=== PATIENT | female | born 1990 | race Caucasian/White ===

== ENCOUNTER 2017-02-14 11:50 | Emergency (ER) | payer BC ==
[2017-02-14 12:38] LABS: ABSOLUTE BASOPHILS # (AUTO) 0.1 10^3/uL (0.0-0.2); ABSOLUTE EOSINOPHILS # (AUTO) 0.1 10^3/uL (0.0-0.6); ABSOLUTE LYMPHOCYTES (AUTO) 2.7 10^3/uL (0.5-4.7); ABSOLUTE MONOCYTES (AUTO) 0.5 10^3/uL (0.1-1.4); ABSOLUTE NEUT (AUTO) 4.9 10^3/uL (1.7-8.2); BASOPHILS % (AUTO) 0.7 % (0-2); EOSINOPHILS % (AUTO) 1.7 % (0-6); HEMATOCRIT 42.2 % (36.0-47.0); HEMOGLOBIN 14.1 g/dL (12.0-15.5); HGB HCT DIFFERENCE 0.1; LYMPHOCYTES % (AUTO) 32.1 % (13-45); MEAN CORPUSCULAR HEMOGLOBIN 29.4 pg (27.0-33.4); MEAN CORPUSCULAR HGB CONC 33.5 g/dL (32.0-36.0); MEAN CORPUSCULAR VOLUME 88 fl (80-97); RED BLOOD COUNT 4.81 10^6/uL (3.72-5.28); RED CELL DISTRIBUTION WIDTH 12.4 % (11.5-14.0); SEGMENTED NEUTROPHILS % (AUTO) 59.5 % (42-78); WHITE BLOOD COUNT 8.3 10^3/uL (4.0-10.5)
[2017-02-14 12:50] LABS: APPEARANCE,URINE CLEAR; BILIRUBIN,URINE NEGATIVE (NEGATIVE); GLUCOSE, URINE NEGATIVE (NEGATIVE); KETONES,URINE NEGATIVE (NEGATIVE); LEUKOCYTE ESTERASE,URINE NEGATIVE (NEGATIVE); NITRITE,URINE NEGATIVE (NEGATIVE); PROTEIN,URINE NEGATIVE (NEGATIVE); URINE SPECIFIC GRAVITY 1.013; UROBILINOGEN,URINE NEGATIVE mg/dL (<2.0)
[2017-02-14 13:06] LABS: ALANINE AMINOTRANSFERASE 29 U/L (9-52); ALBUMIN 4.6 g/dL (3.5-5.0); ALKALINE PHOSPHATASE 46 U/L (38-126); ANION GAP 11 (5-19); ASPARTATE AMINO TRANSFERASE 26 U/L (14-36); BILIRUBIN,DIRECT 0.2 mg/dL (0.0-0.4); BILIRUBIN,TOTAL 0.8 mg/dL (0.2-1.3); BLOOD UREA NITROGEN 14 mg/dL (7-20); CALCIUM 9.7 mg/dL (8.4-10.2); CARBON DIOXIDE 26 mmol/L (22-30); CHLORIDE 105 mmol/L (98-107); GLUCOSE 83 mg/dL (75-110); POTASSIUM 4.6 mmol/L (3.6-5.0); SODIUM 141.6 mmol/L (137-145); TOTAL PROTEIN 7.4 g/dL (6.3-8.2)
--- NOTE | 2017-02-14 13:11 | RADIOLOGY REPORT (SQ) ---
EXAM DESCRIPTION: CT HEAD WITHOUT COMPLETED DATE/TIME: 02/14/2017 12:56 pm REASON FOR STUDY: new onset seizure COMPARISON: 05/06/2010 TECHNIQUE: Axial images acquired through the brain without intravenous contrast. Images reviewed wi th bone, brain and subdural windows. Images stored on PACS. All CT scanners at this facility use dose modulation, iterative reconstruction, and/or weight based d osing when appropriate to reduce radiation dose to as low as reasonably achievable (ALARA). [facility]: Dose Right [facility]: CareDose [facility]: Dose Right [facility]: Teradose 4D [facility]: Smart TwtBks RADIATION DOSE: Up-to-date CT equipment and radiation dose reduction techniques were employed. CTDIv ol: 64.6 mGy. DLP: 1292 mGy-cm. mGy. LIMITATIONS: None. FINDINGS: VENTRICLES: Normal size and contour. CEREBRUM: No masses. No hemorrhage. No midline shift. Normal jose/white matter differentiation. N o evidence for acute infarction. CEREBELLUM: No masses. No hemorrhage. No alteration of density. No evidence for acute infarction. EXTRAAXIAL SPACES: No fluid collections. No masses. ORBITS AND GLOBE: No intra- or extraconal masses. Normal contour of globe without masses. CALVARIUM: No fracture. PARANASAL SINUSES: No fluid or mucosal thickening. SOFT TISSUES: No mass or hematoma. OTHER: No other significant finding. IMPRESSION: NORMAL BRAIN CT WITHOUT CONTRAST. TECHNICAL DOCUMENTATION: JOB ID: [id number] Quality ID # [id number]: Final reports with documentation of one or more dose reduction techniques (e.g., Au tomated exposure control, adjustment of the mA and/or kV according to patient size, use of iterative reconstruction technique) 2010 [employer]- All Rights Reserved
--- NOTE | 2017-02-14 13:11 | RADIOLOGY REPORT (SQ) ---
EXAM DESCRIPTION: FOOT LEFT COMPLETE COMPLETED DATE/TIME: 02/14/2017 1:02 pm REASON FOR STUDY: foot injury COMPARISON: None. NUMBER OF VIEWS: Three views. TECHNIQUE: AP, lateral and oblique radiographic images acquired of the left foot. LIMITATIONS: None. FINDINGS: MINERALIZATION: Normal. BONES: No acute fracture or dislocation. No worrisome bone lesions. JOINTS: No effusions. SOFT TISSUES: No soft tissue swelling. No foreign body. OTHER: No other significant finding. IMPRESSION: NEGATIVE STUDY OF THE LEFT FOOT. NO RADIOGRAPHIC EVIDENCE OF ACUTE INJURY. TECHNICAL DOCUMENTATION: JOB ID: [id number] [employer]- All Rights Reserved
[2017-02-14] MEDS ORDERED: KETOROLAC TROMETHAMINE 10 MG TABLET PO ONE (13:34)
--- NOTE | 2017-02-14 13:34 | ER Document Report ---
ED General - General Chief Complaint: Probable Seizure Stated Complaint: FOOT INJURY Time Seen by Provider: 02/14/17 12:06 Mode of Arrival: Ambulatory Information source: Patient, Parent Notes: 26-year-old female no previous seizure history no previous medical history who only takes vitamins [id number] presents after a seizure like episode lasting approximately 2 minutes per mother. Mother states she was shaking eyes rolled back she laid her to the side. Patient gradually woke up and admits to headache as well as left foot pain. Patient denies any other injuries Mother denies a family history of seizures denies staring off episodes of the child TRAVEL OUTSIDE OF THE [place] IN LAST 30 DAYS: No - HPI Onset: Just prior to arrival Onset/Duration: Sudden Quality of pain: Achy Severity: Mild Pain Level: 1 Associated symptoms: Headache Exacerbated by: Movement Relieved by: Denies Similar symptoms previously: No Recently seen / treated by doctor: No - Related Data Allergies/Adverse Reactions: adhesive [Adhesive] Allergy (Intermediate, Verified 09/20/13 16:27) Generalized rash latex [Latex] Allergy (Intermediate, Verified 09/20/13 16:27) Generalized rash Past Medical History - Social History Smoking Status: Never Smoker Cigarette use (# per day): No Chew tobacco use (# tins/day): No Smoking Education Provided: No Frequency of alcohol use: Rare Drug Abuse: None Family History: Reviewed & Not Pertinent Renal/ Medical History: Denies: Hx Peritoneal Dialysis Musculoskeltal Medical History: Reports Hx Arthritis - JRA Past Surgical History: Reports: Hx Tonsillectomy - Immunizations Hx Diphtheria, Pertussis, Tetanus Vaccination: Yes Review of Systems - Review of Systems Notes: REVIEW OF SYSTEMS: CONSTITUTIONAL : Denies fever, chills, or sweats. Denies recent illness. EENT: Denies eye, ear, throat, or mouth pain or symptoms. Denies nasal or sinus congestion or discharge. Denies throat, tongue, or mouth swelling or difficulty swallowing. CARDIOVASCULAR: Denies chest pain. Denies palpitations or racing or irregular heart beat. Denies ankle edema. RESPIRATORY: Denies cough, cold, or chest congestion. Denies shortness of breath, difficulty breathing, or wheezing. GASTROINTESTINAL: Denies abdominal pain or distention. Denies nausea, vomiting , or diarrhea. Denies blood in vomitus, stools, or per rectum. Denies black, tarry stools. Denies constipation. GENITOURINARY: Denies difficulty urinating, painful urination, burning, frequency, blood in urine, or discharge. FEMALE GENITOURINARY: Denies vaginal bleeding, heavy or abnormal periods, irregular periods. Denies vaginal discharge or odor. MUSCULOSKELETAL: Admits to left footpain SKIN: Denies rash, lesions or sores. HEMATOLOGIC : Denies easy bruising or bleeding. LYMPHATIC: Denies swollen, enlarged glands. NEUROLOGICAL: Admits to seizure activity PSYCHIATRIC: Denies anxiety or stress. Denies depression, suicidal ideation, or homicidal ideation. ALL OTHER SYSTEMS REVIEWED AND NEGATIVE. PHYSICAL EXAMINATION: GENERAL: Well-appearing, well-nourished and in no acute distress. HEAD: Atraumatic, normocephalic. EYES: Pupils equal round extraocular movements intact, conjunctiva are normal. ENT: Nares patent, oropharynx clear without exudates. Moist mucous membranes. NECK: Normal range of motion, supple without lymphadenopathy LUNGS: Breath sounds clear to auscultation bilaterally and equal. No wheezes rales or rhonchi. HEART: Regular rate and rhythm without murmurs Female : deferred Musculoskeletal: Normal range of motion, no pitting or edema. No cyanosis. NEUROLOGICAL: Cranial nerves grossly intact. Normal speech, normal gait. Normal sensory, motor exams PSYCH: Normal mood, normal affect. SKIN: Warm, Dry, normal turgor, no rashes or lesions noted. Dictation was performed using [employer] voice recognition software Physical Exam - Vital signs Vitals: Temp Pulse Resp BP Pulse Ox 98.4 F 58 L 20 131/80 H 100 02/14/17 11:57 02/14/17 11:57 02/14/17 11:57 02/14/17 11:57 02/14/17 11:57 Course - Re-evaluation Re-evalutation: 02/14/17 13:57 CT imaging labwork notes no significant abnormality. Patient denies any specific concerns at this time she did not eat this morning prior to her seizure activity and the patient notes she ate after so this may have been a hypoglycemic event however it must be treated as a new onset seizure until cleared, patient will follow up with Dr. Benito After performing a Medical Screening Examination, I estimate there is LOW risk for ACUTE GLAUCOMA, TEMPORAL ARTERITIS, MENINGITIS, INCRANIAL HEMORRHAGE, or ISCHEMIC STROKE thus I consider the discharge disposition reasonable. I have reevaluated this patient multiple times and no significant life threatening changes are noted. The patient and I have discussed the diagnosis and risks, and we agree with discharging home with close follow-up with the understanding that symptoms and presentations can change. We also discussed returning to the Emergency Department immediately if new or worsening symptoms occur. We have discussed the symptoms which are most concerning (e.g., changing or worsening symptoms, new numbness or weakness, vomiting, fever) that necessitate immediate return. - Vital Signs Vital signs: Temp Pulse Resp BP Pulse Ox 97.7 F 79 18 113/62 99 02/14/17 13:45 02/14/17 13:45 02/14/17 13:45 02/14/17 13:45 02/14/17 13:45 - Laboratory Result Diagrams: 02/14/17 12:18 02/14/17 12:18 Laboratory results interpreted by me: 02/14/17 12:15 Urine Ascorbic Acid 20 H - Diagnostic Test Radiology reviewed: Image reviewed, Reports reviewed Discharge - Discharge Clinical Impression: New onset seizure Injury of left foot Qualifiers: Encounter type: initial encounter Qualified Code(s): S99.922A - Unspecified injury of left foot, initial encounter Condition: Stable Disposition: HOME, SELF-CARE Instructions: New Seizure ([facility]) Referrals: IRMA BENITO MD [ACTIVE STAFF] - Follow up as needed
[2017-02-14 13:46] VITALS: BP 113/62
== END 2017-02-14 14:10 | disposition home or self-care (01) ==
LOC: ER 11:50
DX: R56.9 Unspecified convulsions (principal); S99.922A Unspecified injury of left foot, initial encounter; M79.672 Pain in left foot; R51 Headache; W19.XXXA Unspecified fall, initial encounter; Y93.89 Activity, other specified; Z91.040 Latex allergy status; Z79.899 Other long term (current) drug therapy
CPT/HCPCS: 99285; 36415; 85025; 81025; 80053; 81001; 73630; 70450; J3490

== ENCOUNTER → 2017-02-19 | Outpatient (CLI) | payer BC ==
--- NOTE | 2017-02-20 08:30 | RADIOLOGY REPORT (SQ) ---
EXAM DESCRIPTION: MRI HEAD COMBO COMPLETED DATE/TIME: 02/19/2017 8:06 pm REASON FOR STUDY: UNSPECIFIED CONVULSIONS R56.9 UNSPECIFIED CONVULSIONS COMPARISON: CT dated 02/14/2017. TECHNIQUE: Multiplanar imaging includes noncontrasted T1, T2, FLAIR, diffusion with ADC map and post gadolinium contrast T1 sequences. Images stored on PACS. CONTRAST TYPE AND DOSE: 15 mL Multihance. RENAL FUNCTION: GFR > 60. LIMITATIONS: None. FINDINGS: ANATOMY: No anomalies. Normal vascular flow voids. Pituitary fossa normal. CSF SPACES: Normal in size and contour. No hemorrhage. CEREBRUM: Sulci and gyri normal in size and contour. Normal white matter signal on FLAIR imaging. No evidence of hemorrhage, mass, or extraaxial fluid collection. No abnormal enhancement post contrast. POSTERIOR FOSSA: No signal alteration. No hemorrhage. No edema, masses, or mass effect. Internal natasha tory canals, cerebellopontine angles, mastoids normal. No enhancing lesions. No abnormal enhancement post contrast. DIFFUSION IMAGING: Negative for acute or subacute infarction. ORBITS: No masses. Globes normal. PARANASAL SINUSES: No fluid levels. Mucosa normal. OTHER: No other significant finding. IMPRESSION: NORMAL MRI OF THE BRAIN WITHOUT AND WITH INTRAVENOUS GADOLINIUM CONTRAST. EVIDENCE OF ACUTE STROKE: NO. TECHNICAL DOCUMENTATION: JOB ID: [id number]- All Rights Reserved
== END ==
LOC: RAD 18:54
PROVIDERS: ATTEND Specialist
DX: R56.9 Unspecified convulsions (principal)
CPT/HCPCS: 70553; A9577

== ENCOUNTER 2018-08-02 11:03 | Inpatient (IN) | payer BC ==
[2018-08-02 12:05] LABS: APPEARANCE,URINE SLIGHTLY-CLOUDY; BILIRUBIN,URINE NEGATIVE (NEGATIVE); COLOR,URINE YELLOW; GLUCOSE, URINE NEGATIVE (NEGATIVE); KETONES,URINE NEGATIVE (NEGATIVE); LEUKOCYTE ESTERASE,URINE LARGE (NEGATIVE); NITRITE,URINE NEGATIVE (NEGATIVE); PROTEIN,URINE NEGATIVE (NEGATIVE); URINE SPECIFIC GRAVITY 1.013; UROBILINOGEN,URINE NEGATIVE mg/dL (<2.0)
[2018-08-02 12:14] LABS: ABSOLUTE EOSINOPHILS # (AUTO) 0.1 10^3/uL (0.0-0.6); ABSOLUTE LYMPHOCYTES (AUTO) 3.1 10^3/uL (0.5-4.7); ABSOLUTE MONOCYTES (AUTO) 0.7 10^3/uL (0.1-1.4); ABSOLUTE NEUT (AUTO) 8.1 10^3/uL (1.7-8.2); BASOPHILS % (AUTO) 0.2 % (0-2); EOSINOPHILS % (AUTO) 0.6 % (0-6); HEMOGLOBIN 11.1 g/dL (12.0-15.5); LYMPHOCYTES % (AUTO) 26.1 % (13-45); MEAN CORPUSCULAR HEMOGLOBIN 26.4 pg (27.0-33.4); MEAN CORPUSCULAR HGB CONC 33.7 g/dL (32.0-36.0); MEAN CORPUSCULAR VOLUME 78 fl (80-97); MONOCYTES % (AUTO) 5.5 % (3-13); PLATELET COUNT 159 10^3/uL (150-450); RED BLOOD COUNT 4.21 10^6/uL (3.72-5.28); RED CELL DISTRIBUTION WIDTH 13.5 % (11.5-14.0); SEGMENTED NEUTROPHILS % (AUTO) 67.6 % (42-78); TOTAL CELLS COUNTED % (AUTO) 100 %
[2018-08-02 12:18] LABS: UR PRO/CREAT RATIO RESULT 0.2 mg/mg (0.0-0.2); URINE PROTEIN 23.6 mg/dL (<12)
[2018-08-02 12:22] LABS: URINE AMPHETAMINES SCREEN NEGATIVE; URINE BARBITURATES SCREEN NEGATIVE; URINE BENZODIAZEPINES SCREEN NEGATIVE; URINE COCAINE SCREEN NEGATIVE; URINE MARIJUANA (THC) SCREEN NEGATIVE; URINE METHADONE SCREEN NEGATIVE; URINE PHENCYCLIDINE SCREEN NEGATIVE
[2018-08-02 12:35] LABS: ALANINE AMINOTRANSFERASE 22 U/L (9-52); ALBUMIN 3.2 g/dL (3.5-5.0); ALKALINE PHOSPHATASE 131 U/L (38-126); ANION GAP 5 (5-19); ASPARTATE AMINO TRANSFERASE 28 U/L (14-36); BILIRUBIN,DIRECT 0.2 mg/dL (0.0-0.4); BILIRUBIN,TOTAL 0.3 mg/dL (0.2-1.3); BLOOD UREA NITROGEN 12 mg/dL (7-20); CALCIUM 9.5 mg/dL (8.4-10.2); CARBON DIOXIDE 23 mmol/L (22-30); CHLORIDE 108 mmol/L (98-107); GLUCOSE 82 mg/dL (75-110); POTASSIUM 4.6 mmol/L (3.6-5.0); SODIUM 136.4 mmol/L (137-145); TOTAL PROTEIN 5.9 g/dL (6.3-8.2); URIC ACID 7.3 mg/dL (2.5-6.2)
--- NOTE | 2018-08-03 11:35 | PDOC PROGRESS REPORT ---
Subjective Progress Note for:: 08/03/18 Subjective:: denies MARSH, blurry vision, RUQ pain, ambulating, voiding w/o difficulty, no VB/no LOF, +FM Reason For Visit: 24 HR URINE COLLECTION Physical Exam - Physical Exam Vital Signs: Temp Pulse Resp BP Pulse Ox 97.9 F 66 15 136/91 H 100 08/03/18 08:14 08/03/18 09:00 08/03/18 09:00 08/03/18 09:00 08/03/18 09:00 Intake & Output 08/02/18 08/03/18 08/04/18 06:59 06:59 06:59 Weight 90.5 kg General appearance: PRESENT: no acute distress, well-developed, well-nourished GI/Abdominal exam: PRESENT: other - gravid uterus Extremities exam: PRESENT: full ROM. ABSENT: calf tenderness, clubbing, pedal edema Psychiatric exam: PRESENT: appropriate affect, normal mood. ABSENT: homicidal ideation, suicidal ideation Skin exam: PRESENT: dry, intact, warm. ABSENT: cyanosis, rash Result Laboratory Results: 08/02/18 11:53 08/02/18 11:53 08/02/18 08/02/18 08/02/18 11:15 11:53 11:53 WBC 12.0 H RBC 4.21 Hgb 11.1 L Hct 33.0 L MCV 78 L MCH 26.4 L MCHC 33.7 RDW 13.5 Plt Count 159 Seg Neutrophils % 67.6 Lymphocytes % 26.1 Monocytes % 5.5 Eosinophils % 0.6 Basophils % 0.2 Absolute Neutrophils 8.1 Absolute Lymphocytes 3.1 Absolute Monocytes 0.7 Absolute Eosinophils 0.1 Absolute Basophils 0.0 Sodium 136.4 L Potassium 4.6 Chloride 108 H Carbon Dioxide 23 Anion Gap 5 BUN 12 Creatinine 0.84 Est GFR ( Amer) > 60 Est GFR (Non-Af Amer) > 60 Glucose 82 Uric Acid 7.3 H Calcium 9.5 Total Bilirubin 0.3 AST 28 ALT 22 Alkaline Phosphatase 131 H Total Protein 5.9 L Albumin 3.2 L Urine Color YELLOW Urine Appearance SLIGHTLY-CLOUDY Urine pH 6.0 Ur Specific [place] 1.013 Urine Protein NEGATIVE Urine Glucose (UA) NEGATIVE Urine Ketones NEGATIVE Urine Blood NEGATIVE Urine Nitrite NEGATIVE Ur Leukocyte Esterase LARGE H Urine WBC (Auto) 7 Urine RBC (Auto) 1 Assessment & Plan - Diagnosis (1) Hypertension affecting in third trimester Is this a current diagnosis for this admission?: Yes Plan: 36+1ega GHTN vs PreE. Mild to severe range BPs since admission. Admitted for 24 hour UTP and will be complete at 1500 approximately. Repeat Labs today at 1400 today. Will determine plan of care once labs and 24 hour UTP completed. Handoff to Dr. Pollack done as she will be assuming care of patient this afternoon. - Time Medications reviewed and adjusted accordingly: Yes Anticipated discharge: Other - depending on labs and BPs Within: Other - Inpatient Certification Based on my medical assessment, after consideration of the patient's comorbidities, presenting symptoms, or acuity I expect that the services needed warrant INPATIENT care.: Yes I certify that my determination is in accordance with my understanding of Medicare's requirements for reasonable and necessary INPATIENT services [42 CFR 412.3e].: Yes Medical Necessity: Need Close Monitoring Due to Risk of Patient Decompensation
[2018-08-03 14:50] LABS: ABSOLUTE BASOPHILS # (AUTO) 0.1 10^3/uL (0.0-0.2); ABSOLUTE EOSINOPHILS # (AUTO) 0.1 10^3/uL (0.0-0.6); ABSOLUTE MONOCYTES (AUTO) 0.6 10^3/uL (0.1-1.4); ABSOLUTE NEUT (AUTO) 6.9 10^3/uL (1.7-8.2); BASOPHILS % (AUTO) 0.6 % (0-2); EOSINOPHILS % (AUTO) 0.8 % (0-6); HEMATOCRIT 34.7 % (36.0-47.0); HEMOGLOBIN 11.8 g/dL (12.0-15.5); LYMPHOCYTES % (AUTO) 28.2 % (13-45); MEAN CORPUSCULAR HEMOGLOBIN 26.7 pg (27.0-33.4); MEAN CORPUSCULAR HGB CONC 34.1 g/dL (32.0-36.0); MEAN CORPUSCULAR VOLUME 78 fl (80-97); MONOCYTES % (AUTO) 5.7 % (3-13); PLATELET COUNT 142 10^3/uL (150-450); RED BLOOD COUNT 4.44 10^6/uL (3.72-5.28); RED CELL DISTRIBUTION WIDTH 13.5 % (11.5-14.0); SEGMENTED NEUTROPHILS % (AUTO) 64.7 % (42-78); TOTAL CELLS COUNTED % (AUTO) 100 %; WHITE BLOOD COUNT 10.6 10^3/uL (4.0-10.5)
[2018-08-03 15:14] LABS: ALANINE AMINOTRANSFERASE 31 U/L (9-52); ALBUMIN 3.5 g/dL (3.5-5.0); ALKALINE PHOSPHATASE 133 U/L (38-126); ANION GAP 9 (5-19); ASPARTATE AMINO TRANSFERASE 32 U/L (14-36); BILIRUBIN,DIRECT 0.1 mg/dL (0.0-0.4); BILIRUBIN,TOTAL 0.2 mg/dL (0.2-1.3); BLOOD UREA NITROGEN 9 mg/dL (7-20); CALCIUM 9.1 mg/dL (8.4-10.2); CARBON DIOXIDE 22 mmol/L (22-30); CHLORIDE 107 mmol/L (98-107); GLUCOSE 91 mg/dL (75-110); POTASSIUM 4.2 mmol/L (3.6-5.0); SODIUM 137.5 mmol/L (137-145); TOTAL PROTEIN 5.9 g/dL (6.3-8.2); URIC ACID 7.5 mg/dL (2.5-6.2)
[2018-08-03 17:01] LABS: URINE PROTEIN 23.6 mg/dL (<12)
[2018-08-03 17:03] LABS: 24 HOUR URINE PROTEIN RESULT 699 mg/day (42-225)
--- NOTE | 2018-08-03 18:55 | PDOC PROGRESS REPORT ---
Subjective Progress Note for:: 08/03/18 Subjective:: Pt very frustrated. She states that we are not on the same page. She stated that the plan was for her to go home. She wants to leave. Reason For Visit: PREECLAMPSIA Physical Exam - Physical Exam Vital Signs: Temp Pulse Resp BP Pulse Ox 97.5 F 70 18 158/93 H 100 08/03/18 11:45 08/03/18 11:45 08/03/18 11:45 08/03/18 11:45 08/03/18 11:45 Intake & Output 08/02/18 08/03/18 08/04/18 06:59 06:59 06:59 Weight 90.5 kg General appearance: PRESENT: no acute distress Respiratory exam: PRESENT: clear to auscultation ricardo Cardiovascular exam: PRESENT: RRR Extremities exam: ABSENT: calf tenderness, clubbing, full ROM, joint swelling, pedal edema, tenderness, +1 edema, +2 edema, other Result Laboratory Results: 08/03/18 14:30 08/03/18 14:30 08/02/18 08/03/18 08/03/18 15:13 14:30 14:30 WBC 10.6 H RBC 4.44 Hgb 11.8 L Hct 34.7 L MCV 78 L MCH 26.7 L MCHC 34.1 RDW 13.5 Plt Count 142 L Seg Neutrophils % 64.7 Lymphocytes % 28.2 Monocytes % 5.7 Eosinophils % 0.8 Basophils % 0.6 Absolute Neutrophils 6.9 Absolute Lymphocytes 3.0 Absolute Monocytes 0.6 Absolute Eosinophils 0.1 Absolute Basophils 0.1 Sodium 137.5 Potassium 4.2 Chloride 107 Carbon Dioxide 22 Anion Gap 9 BUN 9 Creatinine 0.94 Est GFR ( Amer) > 60 Est GFR (Non-Af Amer) > 60 Glucose 91 Uric Acid 7.5 H Calcium 9.1 Total Bilirubin 0.2 AST 32 ALT 31 Alkaline Phosphatase 133 H Total Protein 5.9 L Albumin 3.5 Ur 24 Hour Volume 2960 Ur Total Protein 24 Hr 699 H Assessment & Plan - Time Time Spent with patient: 15-24 minutes - We discussed the fact that her Pre- eclampsia labs are abnormal and her BP is very volatile. According to [facility] naima young she needs to be delivered, - Plan Summary Plan Summary: The plan is to deliver this pt. Her pre-eclampsia labs are abnormal. Her uric acid and Cr are elevated. Her 24 urine is 699 g. Her BPs are ranging 150s over high 90s while in bed. She wants to leave. I gave her AMA papers, I am unsure at this time if she liban sign them and leave. She would not speak to me when I went back in to give her the papers.
--- NOTE | 2018-08-03 20:42 | PDOC PROGRESS REPORT ---
Subjective Progress Note for:: 08/03/18 Subjective:: Pt more pleasant and agreeable. She did not sign the AMA papers and has decided to be compliant. She reports good movement. She denies headaches, vision changes and right upper quadrant tenderness. Reason For Visit: PREECLAMPSIA Physical Exam - Physical Exam Vital Signs: Temp Pulse Resp BP Pulse Ox 97.5 F 70 18 158/93 H 100 08/03/18 11:45 08/03/18 11:45 08/03/18 11:45 08/03/18 11:45 08/03/18 11:45 Intake & Output 08/02/18 08/03/18 08/04/18 06:59 06:59 06:59 Weight 90.5 kg Result Laboratory Results: 08/03/18 14:30 08/03/18 14:30 08/02/18 08/03/18 08/03/18 15:13 14:30 14:30 WBC 10.6 H RBC 4.44 Hgb 11.8 L Hct 34.7 L MCV 78 L MCH 26.7 L MCHC 34.1 RDW 13.5 Plt Count 142 L Seg Neutrophils % 64.7 Lymphocytes % 28.2 Monocytes % 5.7 Eosinophils % 0.8 Basophils % 0.6 Absolute Neutrophils 6.9 Absolute Lymphocytes 3.0 Absolute Monocytes 0.6 Absolute Eosinophils 0.1 Absolute Basophils 0.1 Sodium 137.5 Potassium 4.2 Chloride 107 Carbon Dioxide 22 Anion Gap 9 BUN 9 Creatinine 0.94 Est GFR ( Amer) > 60 Est GFR (Non-Af Amer) > 60 Glucose 91 Uric Acid 7.5 H Calcium 9.1 Total Bilirubin 0.2 AST 32 ALT 31 Alkaline Phosphatase 133 H Total Protein 5.9 L Albumin 3.5 Ur 24 Hour Volume 2960 Ur Total Protein 24 Hr 699 H Assessment & Plan - Diagnosis (2) Hypertension affecting in third trimester Is this a current diagnosis for this admission?: Yes - Time Time Spent with patient: 15-24 minutes - Plan Summary Plan Summary: After researching further, this pt has mild pre-eclampsia which can be managed out patient. She had one BP with a systolic value of 160. Her proteinuria or labs do not meet criteria for severe pre-eclampsia. I will draw labs in the morning to make sure that her status has not changed. She would like to go home. She is agreeable to the plan of being delivered at 37 weeks. She is currently asymptomatic. She will discontinue work and rest for the duration until she can be delivered. Hopefully, she can go home tomorrow.
[2018-08-04 07:44] LABS: ABSOLUTE EOSINOPHILS # (AUTO) 0.1 10^3/uL (0.0-0.6); ABSOLUTE LYMPHOCYTES (AUTO) 3.6 10^3/uL (0.5-4.7); ABSOLUTE MONOCYTES (AUTO) 0.7 10^3/uL (0.1-1.4); ABSOLUTE NEUT (AUTO) 5.7 10^3/uL (1.7-8.2); BASOPHILS % (AUTO) 0.4 % (0-2); EOSINOPHILS % (AUTO) 1.2 % (0-6); HEMATOCRIT 32.7 % (36.0-47.0); HEMOGLOBIN 11.1 g/dL (12.0-15.5); LYMPHOCYTES % (AUTO) 35.9 % (13-45); MEAN CORPUSCULAR HEMOGLOBIN 26.5 pg (27.0-33.4); MEAN CORPUSCULAR HGB CONC 33.8 g/dL (32.0-36.0); MEAN CORPUSCULAR VOLUME 78 fl (80-97); MONOCYTES % (AUTO) 6.7 % (3-13); PLATELET COUNT 129 10^3/uL (150-450); RED BLOOD COUNT 4.17 10^6/uL (3.72-5.28); RED CELL DISTRIBUTION WIDTH 13.3 % (11.5-14.0); SEGMENTED NEUTROPHILS % (AUTO) 55.8 % (42-78); TOTAL CELLS COUNTED % (AUTO) 100 %; WHITE BLOOD COUNT 10.2 10^3/uL (4.0-10.5)
[2018-08-04 08:12] LABS: ALANINE AMINOTRANSFERASE 23 U/L (9-52); ALBUMIN 2.7 g/dL (3.5-5.0); ALKALINE PHOSPHATASE 112 U/L (38-126); ASPARTATE AMINO TRANSFERASE 27 U/L (14-36); BILIRUBIN,DIRECT 0.1 mg/dL (0.0-0.4); BILIRUBIN,TOTAL 0.2 mg/dL (0.2-1.3); BLOOD UREA NITROGEN 9 mg/dL (7-20); CALCIUM 8.6 mg/dL (8.4-10.2); GLUCOSE 78 mg/dL (75-110); TOTAL PROTEIN 5.2 g/dL (6.3-8.2); URIC ACID 7.5 mg/dL (2.5-6.2)
[2018-08-04 08:27] LABS: CARBON DIOXIDE 25 mmol/L (22-30); CHLORIDE 109 mmol/L (98-107); POTASSIUM 4.4 mmol/L (3.6-5.0); SODIUM 138.2 mmol/L (137-145)
[2018-08-04 08:30] LABS: ANION GAP 4 (5-19)
--- NOTE | 2018-08-04 08:34 | PDOC DISCHARGE SUMMARY ---
General - Admit/Disc Date/PCP Admission Date/Primary Care Provider: 08/03/18 16:08 GILBERT ACUNA NP Discharge Date: 08/04/18 - Discharge Diagnosis (1) Pre-eclampsia affecting , antepartum Is this a current diagnosis for this admission?: Yes (2) Hypertension affecting in third trimester Is this a current diagnosis for this admission?: Yes - Additional Information Home Medications: Aspirin [Aspirin 81 mg Chewable Tablet] 1 tab PO DAILY 08/02/18 Ferrous Sulfate [Iron] 1 tab PO DAILY 08/02/18 Folic Acid 1 tab PO DAILY 08/02/18 Nitrofurantoin Macrocrystal [Macrodantin] 1 tab PO DAILY 08/02/18 Pnv,Calcium 72/Iron/Folic Acid [ Plus Tablet] 1 tab PO DAILY 08/02/18 History of Present Illness Patient complains of: Elevated Blood pressures in the office History of Present Illness: BECKY SILVERIO is a 27 year old was sent to the hospital for a pre-eclampsia work up secondary to elevated blood pressures in the office. She denies headaches, vision changes and RUQ tenderness. Physical Exam - Physical Exam Vital Signs: Temp Pulse Resp BP Pulse Ox 97.4 F 43 L 18 129/83 H 99 08/04/18 05:11 08/04/18 05:11 08/04/18 05:11 08/04/18 05:11 08/04/18 05:11 Intake & Output 08/03/18 08/04/18 08/05/18 06:59 06:59 06:59 Weight 90.5 kg General appearance: PRESENT: no acute distress Respiratory exam: PRESENT: clear to auscultation ricardo Cardiovascular exam: PRESENT: RRR GI/Abdominal exam: PRESENT: normal bowel sounds, soft Extremities exam: ABSENT: calf tenderness, clubbing, full ROM, joint swelling, pedal edema, tenderness, +1 edema, +2 edema, other Result Laboratory Results: 08/04/18 07:15 08/02/18 08/03/18 08/03/18 15:13 14:30 14:30 WBC 10.6 H RBC 4.44 Hgb 11.8 L Hct 34.7 L MCV 78 L MCH 26.7 L MCHC 34.1 RDW 13.5 Plt Count 142 L Seg Neutrophils % 64.7 Lymphocytes % 28.2 Monocytes % 5.7 Eosinophils % 0.8 Basophils % 0.6 Absolute Neutrophils 6.9 Absolute Lymphocytes 3.0 Absolute Monocytes 0.6 Absolute Eosinophils 0.1 Absolute Basophils 0.1 Sodium 137.5 Potassium 4.2 Chloride 107 Carbon Dioxide 22 Anion Gap 9 BUN 9 Creatinine 0.94 Est GFR ( Amer) > 60 Est GFR (Non-Af Amer) > 60 Glucose 91 Uric Acid 7.5 H Calcium 9.1 Total Bilirubin 0.2 AST 32 ALT 31 Alkaline Phosphatase 133 H Total Protein 5.9 L Albumin 3.5 Ur 24 Hour Volume 2960 Ur Total Protein 24 Hr 699 H 08/04/18 07:15 WBC 10.2 RBC 4.17 Hgb 11.1 L Hct 32.7 L MCV 78 L MCH 26.5 L MCHC 33.8 RDW 13.3 Plt Count 129 L Seg Neutrophils % 55.8 Lymphocytes % 35.9 Monocytes % 6.7 Eosinophils % 1.2 Basophils % 0.4 Absolute Neutrophils 5.7 Absolute Lymphocytes 3.6 Absolute Monocytes 0.7 Absolute Eosinophils 0.1 Absolute Basophils 0.0 Sodium Potassium Chloride Carbon Dioxide Anion Gap BUN Creatinine Est GFR ( Amer) Est GFR (Non-Af Amer) Glucose Uric Acid Calcium Total Bilirubin AST ALT Alkaline Phosphatase Total Protein Albumin Ur 24 Hour Volume Ur Total Protein 24 Hr Plan Discharge Plan: 1. Discharge home--No worsening of labs; BPs good overnight 2. Follow up as scheduled 3. Work excuse given Time Spent: Less than 30 Minutes
[2018-08-04] MEDS ORDERED: FERROUS SULFATE 325 MG TABLET PO SCH (10:00)
[2018-08-04 11:27] VITALS: BP 145/92
--- NOTE | 2018-09-14 06:55 | PDOC H&P ---
History of Present Illness Admission Date/PCP: 08/03/18 16:08 GILBERT ACUNA NP Patient complains of: elevated BP History of Present Illness: BECKY SILVERIO is a 27 year old female @ 36 1/7 wks with elevated blood pressure sent for evaluation for possible PreE. Pressures in L&D remained labile with several in the 150s/90-100s range. Decision to admit for obs for 24 hour urine collection Past Medical History Medical History: None Musculoskeltal Medical History: Reports: Arthritis - JRA Past Surgical History Past Surgical History: Reports: Tonsillectomy Social History Information Source: Patient Lives with: Family Smoking Status: Unknown if Ever Smoked Frequency of Alcohol Use: None Hx Recreational Drug Use: No Family History Family History: Reviewed & Not Pertinent Parental Family History Reviewed: Yes Children Family History Reviewed: Yes Sibling(s) Family History Reviewed.: Yes Medication/Allergy Home Medications: Folic Acid 1 tab PO DAILY 08/02/18 Pnv,Calcium 72/Iron/Folic Acid [ Plus Tablet] 1 tab PO DAILY 08/02/18 Ibuprofen [Motrin 800 mg Tablet] 800 mg PO Q8HP PRN #60 tablet 08/11/18 Nifedipine [Procardia XL 30 mg Tablet] 30 mg PO DAILY #30 tab.er.24 08/11/18 Allergies/Adverse Reactions: adhesive [Adhesive] Allergy (Intermediate, Verified 08/08/18 19:16) Generalized rash latex [Latex] Allergy (Intermediate, Verified 08/08/18 19:16) Generalized rash penicillin G Allergy (Verified 08/08/18 19:16) Review of Systems Constitutional: PRESENT: as per HPI Physical Exam - Physical Exam Vital Signs: Temp Pulse Resp BP Pulse Ox 97.5 F 46 L 16 145/92 H 100 08/04/18 11:22 08/04/18 11:22 08/04/18 11:22 08/04/18 11:22 08/04/18 11:22 General appearance: PRESENT: no acute distress, cooperative - Obstetrical Exam Fundal Height: 3/u - 4/u Tender: No Result Laboratory Results: 08/04/18 07:15 08/04/18 07:15 Assessment & Plan - Diagnosis (1) Hypertension affecting in third trimester Is this a current diagnosis for this admission?: Yes (2) Qualifiers: Weeks of gestation: 36 weeks Qualified Code(s): Z3A.36 - 36 weeks gestation of - Time Time Spent: 30 to 50 Minutes Critical Time spent with patient: Less than 15 minutes Anticipated discharge: Home Within: within 24 hours - Inpatient Certification Based on my medical assessment, after consideration of the patient's comorbidities, presenting symptoms, or acuity I expect that the services needed warrant INPATIENT care.: Yes I certify that my determination is in accordance with my understanding of Medicare's requirements for reasonable and necessary INPATIENT services [42 CFR 412.3e].: Yes Medical Necessity: Need Close Monitoring Due to Risk of Patient Decompensation, Other - need for possible delivery dependent on PreE workup - Plan Summary Plan Summary: admit for observation for 24 hour urine protein and re-evaluate regarding possible need for delivery based on results vs continued monitoring.
== END 2018-08-04 11:36 | disposition home or self-care (01) | DRG 833 ==
LOC: LC 11:03 → LR 16:43 → 2S 17:59 → OBSVTOIN 08-03 16:08
PROVIDERS: ADMIT Obstetrics & Gynecology; ATTEND Obstetrics & Gynecology
DX: O14.93 Unspecified pre-eclampsia, third trimester (principal); O13.3 Gestational [pregnancy-induced] hypertension without significant proteinuria, third trimester; O99.820 Streptococcus B carrier state complicating pregnancy; Z3A.36 36 weeks gestation of pregnancy
CPT/HCPCS: 36415; 59025; 80053; 80307; 81001; 82570; 83615; 84156; 84550; 85025

== ENCOUNTER 2018-08-08 18:57 | Inpatient (IN) | payer BC ==
--- NOTE | 2018-08-02 17:08 | L&D Progress Notes ---
PROGRESS NOTES Datetime Report Generated by JORGE: 08/02/2018 17:08 PROGRESS NOTE Impression Other: IUP @ 36w Procedures- Other: observation while completing 24hr urine Plan: Transfer Informed Consent Obtained: Risks, Benefits and Alternatives Discussed Vital Signs : Reviewed Vital Signs Comments: Dr. Garcia aware of all blood pressures,labs and hx Comment: S: pt denies all s/s of pre-e, reports anxiety and lack of rest between work and visits causes her elevated bps. Reports she was induced early with her other baby which caused a lot of problems with the baby because she was very small. Does not want to be induce and wanted to go home AMA at first. O: bps ranging from normal to severe range (OB internal controls consultant aware), labs (platelets stable but decreasing and liver enzymes increasing as of last labs on 07/26) uric acid also elevated, protein/creat ratio 0.2, reactive NST, irregular contractions A: IUP @ 36w- possible pre-e, stable P: Discussed with Dr. Garcia, will obtain 24h urine in house and re-asses after 24hr urine has been resulted for possible delivery vs admission until 37w or IOL at 37w. Reviewed all labs and warnings s/s with patient and reason behind needing to remain in house at this time. Pt. was hesitant at first but then decided she would stay and complete labs. Asked questions and verbalized understanding. Pt will proceed to 2S with regular diet and vitals q4h as well as q shift NST while completing 24h urine. SIGNATURE SIGNATURE: [id number] Assignment: Gracie Garcia MD Signature: with User ID: [email or web address] : with User ID: [email or web address]
[2018-08-08] MEDS ORDERED: OXYTOCIN/NORMAL SALINE 20 UNIT/1,000 ML RTUINJ IV PRN (19:19)
[2018-08-08] MEDS ORDERED: DINOPROSTONE 10 MG VAGINAL INSERT.SR PV PRN (19:19)
[2018-08-08] MEDS ORDERED: RINGERS SOLUTION,LACTATED 300 ML IV ONE (19:40)
[2018-08-08] MEDS ORDERED: OXYTOCIN 10 UNIT/ML VIAL ONE (19:51)
[2018-08-08] MEDS ORDERED: MISOPROSTOL 0.2 MG TABLET ONE (19:51)
[2018-08-08] MEDS ORDERED: LIDOCAINE 1% INJ-PF (10 MG/ML) 30 ML SDV ONE (19:51)
[2018-08-08] MEDS ORDERED: OXYTOCIN/NORMAL SALINE 20 UNIT/1,000 ML RTUINJ ONE (19:51)
[2018-08-08] MEDS ORDERED: DINOPROSTONE 10 MG VAGINAL INSERT.SR ONE (19:52)
[2018-08-08] MEDS: RINGERS SOLUTION,LACTATED 1,000 ML IV PRN (19:55)
[2018-08-08 20:13] LABS: ABSOLUTE BASOPHILS # (AUTO) 0.1 10^3/uL (0.0-0.2); ABSOLUTE LYMPHOCYTES (AUTO) 3.6 10^3/uL (0.5-4.7); ABSOLUTE MONOCYTES (AUTO) 0.7 10^3/uL (0.1-1.4); ABSOLUTE NEUT (AUTO) 9.7 10^3/uL (1.7-8.2); BASOPHILS % (AUTO) 0.7 % (0-2); EOSINOPHILS % (AUTO) 0.4 % (0-6); HEMATOCRIT 33.4 % (36.0-47.0); HEMOGLOBIN 11.3 g/dL (12.0-15.5); LYMPHOCYTES % (AUTO) 25.6 % (13-45); MEAN CORPUSCULAR HEMOGLOBIN 26.5 pg (27.0-33.4); MEAN CORPUSCULAR HGB CONC 33.8 g/dL (32.0-36.0); MEAN CORPUSCULAR VOLUME 78 fl (80-97); PLATELET COUNT 142 10^3/uL (150-450); RED BLOOD COUNT 4.27 10^6/uL (3.72-5.28); RED CELL DISTRIBUTION WIDTH 13.5 % (11.5-14.0); SEGMENTED NEUTROPHILS % (AUTO) 68.3 % (42-78); TOTAL CELLS COUNTED % (AUTO) 100 %; WHITE BLOOD COUNT 14.2 10^3/uL (4.0-10.5)
[2018-08-08 20:15] LABS: APPEARANCE,URINE SLIGHTLY-CLOUDY; BILIRUBIN,URINE NEGATIVE (NEGATIVE); COLOR,URINE YELLOW; GLUCOSE, URINE NEGATIVE (NEGATIVE); KETONES,URINE NEGATIVE (NEGATIVE); LEUKOCYTE ESTERASE,URINE TRACE (NEGATIVE); NITRITE,URINE NEGATIVE (NEGATIVE); PROTEIN,URINE 100 mg/dL (NEGATIVE); URINE SPECIFIC GRAVITY 1.019; UROBILINOGEN,URINE NEGATIVE mg/dL (<2.0)
[2018-08-08 20:35] LABS: URINE AMPHETAMINES SCREEN NEGATIVE; URINE BARBITURATES SCREEN NEGATIVE; URINE BENZODIAZEPINES SCREEN NEGATIVE; URINE COCAINE SCREEN NEGATIVE; URINE MARIJUANA (THC) SCREEN NEGATIVE; URINE METHADONE SCREEN NEGATIVE; URINE PHENCYCLIDINE SCREEN NEGATIVE
--- NOTE | 2018-08-08 21:00 | Admission Physical ---
Datetime Report Generated by CPN: 08/08/2018 21:00 CURRENT ADMISSION Chief Complaint: Scheduled Induction of Labor Indication for Induction: PreEclampsia Admit Impression : Term, Intrauterine Admit Plan: Admit to Unit; Initiate Labor Induction Protocol ALLERGIES Medication Allergies: Yes Medication Allergies: adhesive/MO/Generalized cesia (08/08/2018); penicillin G (08/08/2018); latex/MO/Generalized cesia (08/08/2018) Latex: Latex Allergies OBSTETRICAL HISTORY EDC: 08/30/2018 00:00 : 2 Para: 1 Term: 1 : 0 SAB: 0 IAB: 0 Ectopic: 0 Livin Cesareans: 0 VBACs: 0 Multiple Births: 0 Gestational Diabetes: No Rh Sensitization: No Incompetent Cervix: No TAPAN: No Infertility: No ART Treatment: No Uterine Anomaly: No IUGR: No Hx Previous C/S: No Macrosomia: No Hx Loss/Stillborn: No PIH: No Hx : No Placenta Previa/Abruption: No Depression/PP Depression: No PTL/PROM: No Post Hemorrhage: No Current Procedures: Ultrasound; NST Obstetrical History Comments: G1- , pre-e G2- current SEE RECORDS Alcohol: No Marijuana : No Cocaine: No Other Illicit Drugs: No Cigarettes: Never Smoker. 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 Heart Disease: No Hosp/Surgery: Yes Autoimmune Disorder: Yes Anesthetic Complications: No Kidney Disease: Yes Abnormal Pap Smear: No Neuro/Epilepsy: Yes Psychiatric Disorders: No Other Medical Diseases: Yes Hepatitis/Liver Disease: No Significant Family History: No Varicosities/Phlebitis: No Trauma/Violence : No Thyroid Dysfunction: No Medical History Comments: JRA rx in 1999, chronic HTN, seizures, migranes, tonsillectomy, childbirth, treated for pyleo this , UTI x3 INFECTIOUS HISTORY Gonorrhea: No Genital Herpes: No Chlamydia: No Tuberculosis: No Syphilis: No Hepatitis: No HIV/AIDS Exposure: No Rash or Viral Illness: No HPV: No PHYSICAL EXAM General: Normal HEENT: Normal Neurologic: Normal Thyroid: Normal Heart: Normal Lungs: Normal Breast: Normal Back: Normal Abdomen: Normal Genitourinary Exam: Normal Extremities: Normal DTRs: Normal Pelvic Type: Adequate Vital Signs: Reviewed; Within Normal Limits Details Vital Signs: elevated BP VAGINAL EXAM Dilatation: 1 Effacement: 50% Station: -3 MEMBRANES Membranes: Intact FETUS A EGA: 36.6 Monitoring: External US FHR- Baseline: 149s Variability: Moderate 6-25bpm Accelerations: 15X15 FHR Category: Category I Admit Comment: Elevated BPs; will check PIH labs PLANS FOR LABOR AND DELIVERY Labor and Delivery: Plan Pain Management: Natural Feeding Preference: Breast Benefit of Breast Feed Discussed: Yes Circumcision: N/A INFORMED CONSENT Informed Consent Obtained: Risks, Benefits and Alternatives Discussed Signature: with User ID: [email or web address]
[2018-08-08 21:12] LABS: ALANINE AMINOTRANSFERASE 32 U/L (9-52); ALBUMIN 3.4 g/dL (3.5-5.0); ALKALINE PHOSPHATASE 143 U/L (38-126); ANION GAP 9 (5-19); ASPARTATE AMINO TRANSFERASE 28 U/L (14-36); BILIRUBIN,DIRECT 0.1 mg/dL (0.0-0.4); BILIRUBIN,TOTAL 0.2 mg/dL (0.2-1.3); BLOOD UREA NITROGEN 14 mg/dL (7-20); CALCIUM 9.2 mg/dL (8.4-10.2); CARBON DIOXIDE 20 mmol/L (22-30); CHLORIDE 109 mmol/L (98-107); GLUCOSE 94 mg/dL (75-110); POTASSIUM 3.8 mmol/L (3.6-5.0); SODIUM 137.6 mmol/L (137-145); TOTAL PROTEIN 5.9 g/dL (6.3-8.2); URIC ACID 7.8 mg/dL (2.5-6.2)
[2018-08-08] MEDS ORDERED: LABETALOL HCL INJ 20 MG/4 ML DISP.SYRIN IV ONE (21:51)
[2018-08-08] MEDS: LABETALOL HCL INJ 20 MG/4 ML DISP.SYRIN IV PRN (21:56)
--- NOTE | 2018-08-09 04:23 | L&D Progress Notes ---
PROGRESS NOTES Datetime Report Generated by CPN: 08/09/2018 04:23 PROGRESS NOTE Impression: Normal Progression of Labor Plan: Continue Present Management Vital Signs : Reviewed Vital Signs Comments: elevated BP Comment: Pt refuses blood pressure medication. Pt is very uncooperative. VAGINAL EXAM Dilatation: 1 Effacement: 50% Station: -3 LAST VAGINAL EXAM-NURSING Dilitation: 1.0 Effacement: 50 Station: -3 MEMBRANES Membranes: Intact FETUS A FHR - Baseline: 130s Monitoring: External US Variability: Moderate 6-25bpm Accelerations: 15X15 Decelerations: None FHR Category: Category I : 37.0 : 36.6 SIGNATURE SIGNATURE: [id number];[id number] SIGNATURE: [id number];[id number] Signature: with User ID: [email or web address]
[2018-08-09] MEDS ORDERED: NALBUPHINE HCL INJ 10 MG/1 ML AMPULE ONE (04:49)
[2018-08-09] MEDS ORDERED: PROMETHAZINE HCL INJ 25 MG/1 ML VIAL ONE (04:49)
[2018-08-09] MEDS ORDERED: PROMETHAZINE HCL INJ 25 MG/1 ML VIAL IV ONE (05:00)
[2018-08-09] MEDS ORDERED: NALBUPHINE HCL INJ 10 MG/1 ML AMPULE INJ ONE (05:00)
[2018-08-09] MEDS: RINGERS SOLUTION,LACTATED 1,000 ML IV PRN (05:10)
[2018-08-09] MEDS ORDERED: LABETALOL HCL INJ 20 MG/4 ML DISP.SYRIN IV ONE (06:28)
[2018-08-09] MEDS: LABETALOL HCL INJ 20 MG/4 ML DISP.SYRIN IV PRN (06:31)
[2018-08-09] MEDS ORDERED: FENTANYL CITRATE INJ/PF 100 MCG/2 ML AMPUL IV ONE (07:16)
[2018-08-09] MEDS ORDERED: FENTANYL CITRATE INJ/PF 100 MCG/2 ML AMPUL ONE (07:17)
[2018-08-09] MEDS ORDERED: MISOPROSTOL 0.2 MG TABLET ONE (07:18)
[2018-08-09] MEDS ORDERED: LIDOCAINE 1% INJ-PF (10 MG/ML) 30 ML SDV ONE (07:18)
[2018-08-09] MEDS ORDERED: OXYTOCIN/NORMAL SALINE 0 UNIT/0 ML RTUINJ ONE (07:18)
[2018-08-09] MEDS ORDERED: ZOLPIDEM TARTRATE 5 MG TABLET PO PRN (07:59)
[2018-08-09] MEDS ORDERED: ACETAMINOPHEN WITH CODEINE #3 TABLET PO PRN (07:59)
[2018-08-09] MEDS ORDERED: OXYTOCIN/NORMAL SALINE 20 UNIT/1,000 ML RTUINJ IV PRN (07:59)
[2018-08-09] MEDS ORDERED: DIBUCAINE 1% OINTMENT 28 GM TP PRN (07:59)
[2018-08-09] MEDS ORDERED: MEASLES,MUMPS&RUBELLA VACC/PF 0.5 ML VIAL SUBCUT PRN (07:59)
[2018-08-09] MEDS ORDERED: DIPH/PERTUSS(ACELL)/TETANUS VAC/PF 0.5 ML SYR (>=10YO) IM PRN (07:59)
[2018-08-09] MEDS ORDERED: BENZOCAINE/MENTHOL AEROSOL SPRAY 56 ML TOP PRN (07:59)
[2018-08-09] MEDS ORDERED: NIFEDIPINE 30 MG TAB.ER.24 PO ONE ×2 (09:00→22:00)
[2018-08-09] MEDS ORDERED: PRENATAL VITAMIN W DHA CAPSULE PO ONE (09:04)
[2018-08-09] MEDS ORDERED: SENNOSIDES/DOCUSATE 8.6-50 MG 1 EACH TABLET ONE (09:04)
[2018-08-09] MEDS ORDERED: FERROUS SULFATE 325 MG TABLET PO ONE (09:04)
[2018-08-09] MEDS ORDERED: IBUPROFEN 800 MG TABLET ONE (09:04)
[2018-08-09] MEDS ORDERED: DOCUSATE SODIUM 100 MG CAPSULE ONE (09:04)
[2018-08-09] MEDS: FERROUS SULFATE 325 MG TABLET PO SCH ×2 (09:06→17:48)
[2018-08-09] MEDS: PRENATAL VITAMIN W DHA CAPSULE PO SCH (09:06)
[2018-08-09] MEDS: DOCUSATE SODIUM 100 MG CAPSULE PO SCH ×2 (09:07→17:48)
[2018-08-09] MEDS: SENNOSIDES/DOCUSATE 8.6-50 MG 1 EACH TABLET PO SCH (09:07)
--- NOTE | 2018-08-09 09:59 | Delivery Summary ---
Del Sum A-C Datetime Report Generated by CPN: 08/09/2018 09:58 DELIVERY PERSONNEL DELIVERY PERSONNEL: [id number] Delivery Doctor:: Mallorie Mercado MD Labor and Delivery Nurse:: Winnie Oscar RNtrimmer buffing wheel Nurse:: Romina Magana RN Nursery Nurse:: Janelle Del Castillo RN Pharmaceutical Engineer/MARINE SERVICE MANAGER: Nickiejordan Soto, MARINE SERVICE MANAGER II MATERNAL INFORMATION Delivery Anesthesia: None Medications After Delivery: Pitocin Bolus-Please Comment; Pitocin Drip 20 Units/1000ml NSS Maternal Complications: None Provider Comments: of a viable female at 0742 with an OA presentation; APGARS 8, 9; superficial right periurethral lac w/ no repair Pt refused antibiotics for GBS LABOR SUMMARY EDC: 08/30/2018 00:00 No. Babies in Womb: 1 Attempted: No Labor Anesthesia: IV Sedation LABOR INFORMATION Reason for Induction: Chronic Primary/Essential HTN; Pre-Eclampsia Onset of Labor: 08/09/2018 07:00 Complete Dilatation: 08/09/2018 07:22 Cervical Ripening Agents: Cervidil Oxytocin: N/A Group B Beta Strep: positive Antibiotics # of Doses: 0 Steroids Given: None Reason Steroids Not Administered: Not Applicable MEMBRANES Membranes Rupture Method: Artificial Rupture of Membranes: 08/09/2018 07:29 Length of Rupture (hr): 0.22 Amniotic Fluid Color: Clear Amniotic Fluid Amount: Small STAGES OF LABOR Stage 1 hr: 0 Stage 1 min: 22 Stage 2 hr: 0 Stage 2 min: 20 Stage 3 hr: 0 Stage 3 min: 3 Total Time in Labor hr: 0 Total Time in Labor min: 45 VAGINAL DELIVERY Episiotomy: None Laceration #1: Periurethral Laceration Extension #1: First Degree Other Laceration: RT PERIURETHRAL SUPERFICIAL ABRASION Laceration Repair: No Sponge Count Correct: Yes Sharps Count Correct: Yes CSECTION DELIVERY Primary Indication: N/A BABY A INFORMATION Delivery Date/Time: 08/09/2018 07:42 Method of Delivery: Vaginal Born in Route : No : N/A Forceps: N/A Vacuum Extraction: N/A Shoulder Dystocia : No PRESENTATION/POSITION BABY A Presentation: Cephalic Cephalic Presentation: Vertex Vertex Position: Left Occipital Anterior Breech Presentation: N/A PLACENTA INFORMATION BABY A Placenta Delivery Time : 08/09/2018 07:45 Placenta Method of Delivery: Spontaneous Placenta Status: Delivered SCORES BABY A Heart Rate 1 min: >100 bpm Resp Effort 1 min: Good Cry Reflex Irritability 1 min: Cough or Sneeze or Pulls Away Muscle Tone 1 min: Active Motion Color 1 min: Blue/Pale Resuscitation Effort 1 min: Tactile Stimulation SCORE 1 MIN: 8 Heart Rate 5 min: >100 bpm Resp Effort 5 min: Good Cry Reflex Irritability 5 min: Cough or Sneeze or Pulls Away Muscle Tone 5 min: Active Motion Color 5 min: Body [place], Extremities Blue Resuscitation Effort 5 min: Tactile Stimulation SCORE 5 MIN: 9 INFANT INFORMATION BABY A Gestational Age at Delivery: 37.0 Gestational Status: Early Term- 37- 38.6 Weeks Outcome : Liveborn Infant Condition : Stable Sex: Female IDENTIFICATION BABY A Infant Verification Date/Time: 08/09/2018 08:14 ID Band Number: [id number] Mother's Name Verified: Yes Infant RN Verifying Infant: Branden Roberson, RN/ Arthur Oscar, RN WEIGHT/LENGTH BABY A Birthweight (gm): 3140 Infant Weight (lb): 6 Infant Weight (oz): 15 Length (in): 18.50 Infant Length (cm): 46.99 CORD INFORMATION BABY A No. Cord Vessels: 3 Nuchal Cord : N/A Cord Blood Taken: Yes-For Storage (Mom's Blood type +) Infant Suction: None ASSESSMENT BABY A Skin to Skin: Yes Skin to Skin Time (min): 60 BABY B INFORMATION : N/A SIGNATURES Signature: with User ID: [email or web address]
[2018-08-09] MEDS: NIFEDIPINE 30 MG TAB.ER.24 PO SCH (14:23)
[2018-08-09] MEDS: IBUPROFEN 800 MG TABLET PO SCH ×2 (15:40→22:12)
[2018-08-10] MEDS: IBUPROFEN 800 MG TABLET PO SCH ×3 (05:13→22:33)
[2018-08-10 07:41] LABS: HEMATOCRIT 31.7 % (36.0-47.0); HEMOGLOBIN 10.7 g/dL (12.0-15.5); MEAN CORPUSCULAR HEMOGLOBIN 26.5 pg (27.0-33.4); MEAN CORPUSCULAR HGB CONC 33.7 g/dL (32.0-36.0); MEAN CORPUSCULAR VOLUME 79 fl (80-97); PLATELET COUNT 134 10^3/uL (150-450); RED BLOOD COUNT 4.03 10^6/uL (3.72-5.28); RED CELL DISTRIBUTION WIDTH 14.1 % (11.5-14.0); WHITE BLOOD COUNT 17.6 10^3/uL (4.0-10.5)
--- NOTE | 2018-08-10 09:05 | PDOC PROGRESS REPORT ---
Subjective-OB Progress Note for:: 08/10/18 Subjective: Pt doing well, no concerns. She reports light bleeding, reg diet and voiding without difficulty. Physical Exam (OB) Vital Signs: Temp Pulse Resp BP Pulse Ox 98.0 F 64 18 137/100 H 98 08/10/18 08:14 08/10/18 08:14 08/10/18 08:14 08/10/18 08:14 08/10/18 08:14 Intake & Output 08/09/18 08/10/18 08/11/18 06:59 06:59 06:59 Intake Total 1000 1000 Balance 1000 1000 Weight 91.8 kg - PIH/Pre-Eclampsia DTR's: 1 + Clonus: Negative Headache: Absent Epigastric Pain: No Visual Changes: No - Lochia Lochia Amount: Small 10-25 ml Lochia Color: Rubra/Red - Abdomen Description: Soft, Round Hernia Present: No Fundal Description: Firm, Midline Fundal Height: u/u - u/2 Objective-Diagnostic Laboratory: 08/10/18 07:17 08/08/18 20:00 08/10/18 07:17 WBC 17.6 H RBC 4.03 Hgb 10.7 L Hct 31.7 L MCV 79 L MCH 26.5 L MCHC 33.7 RDW 14.1 H Plt Count 134 L Seg Neutrophils % Not Reportable Lymphocytes % Not Reportable Monocytes % Not Reportable Eosinophils % Not Reportable Basophils % Not Reportable Absolute Neutrophils Not Reportable Absolute Lymphocytes Not Reportable Absolute Monocytes Not Reportable Absolute Eosinophils Not Reportable Absolute Basophils Not Reportable Assessment and Plan(PN) - Assessment and Plan (1) (normal spontaneous vaginal delivery) Is this a current diagnosis for this admission?: Yes (2) Hypertension affecting in third trimester Is this a current diagnosis for this admission?: Yes (3) Pre-eclampsia affecting , antepartum Is this a current diagnosis for this admission?: Yes - Time Spent with Patient Time with patient: Less than 15 minutes Medications reviewed and adjusted accordingly: Yes - Disposition Anticipated Discharge: Home Within: within 24 hours
[2018-08-10] MEDS: DOCUSATE SODIUM 100 MG CAPSULE PO SCH ×2 (09:07→18:00)
[2018-08-10] MEDS: NIFEDIPINE 30 MG TAB.ER.24 PO SCH (09:07)
[2018-08-10] MEDS: PRENATAL VITAMIN W DHA CAPSULE PO SCH (09:07)
[2018-08-10] MEDS: SENNOSIDES/DOCUSATE 8.6-50 MG 1 EACH TABLET PO SCH (09:07)
[2018-08-10] MEDS: FERROUS SULFATE 325 MG TABLET PO SCH ×2 (09:07→18:00)
[2018-08-10 09:15] LABS: ABSOLUTE LYMPHOCYTES# (MANUAL) 5.5 10^3/uL (0.5-4.7); ABSOLUTE MONOCYTES # (MANUAL) 0.5 10^3/uL (0.1-1.4); ABSOLUTE NEUTROPHILS# (MANUAL) 11.6 10^3/uL (1.7-8.2); BAND NEUTROPHILS % (MANUAL) 4 % (3-5); BASOPHILS % (MANUAL) 0 % (0-2); EOSINOPHILS % (MANUAL) 0 % (0-6); LYMPHOCYTES % (MANUAL) 27 % (13-45); MONOCYTES % (MANUAL) 3 % (3-13); SEGMENTED NEUTROPHILS % (MAN) 62 % (42-78); TOTAL CELLS COUNTED 100
[2018-08-10 09:16] LABS: TOXIC GRANULATION 1+
[2018-08-10 09:17] LABS: PLATELET COMMENT DECREASED
[2018-08-11] MEDS: IBUPROFEN 800 MG TABLET PO SCH ×2 (06:32→13:48)
[2018-08-11] MEDS: PRENATAL VITAMIN W DHA CAPSULE PO SCH (09:18)
[2018-08-11] MEDS: SENNOSIDES/DOCUSATE 8.6-50 MG 1 EACH TABLET PO SCH (09:18)
[2018-08-11] MEDS: NIFEDIPINE 30 MG TAB.ER.24 PO SCH (09:18)
[2018-08-11] MEDS: DOCUSATE SODIUM 100 MG CAPSULE PO SCH (09:18)
[2018-08-11] MEDS: FERROUS SULFATE 325 MG TABLET PO SCH (09:18)
--- NOTE | 2018-08-11 09:58 | PDOC DISCHARGE SUMMARY ---
Final Diagnosis Discharge Date: 08/11/18 - Final Diagnosis (1) (normal spontaneous vaginal delivery) Is this a current diagnosis for this admission?: Yes (2) Pre-eclampsia affecting , antepartum Is this a current diagnosis for this admission?: Yes Discharge Data - Discharge Medication Prescriptions: Ibuprofen [Motrin 800 mg Tablet] 800 mg PO Q8HP PRN #60 tablet PRN Reason: Nifedipine [Procardia XL 30 mg Tablet] 30 mg PO DAILY #30 tab.er.24 Home Medications: Folic Acid 1 tab PO DAILY 08/02/18 Pnv,Calcium 72/Iron/Folic Acid [ Plus Tablet] 1 tab PO DAILY 08/02/18 Ibuprofen [Motrin 800 mg Tablet] 800 mg PO Q8HP PRN #60 tablet 08/11/18 Nifedipine [Procardia XL 30 mg Tablet] 30 mg PO DAILY #30 tab.er.24 08/11/18 Reason(s) for Admission: Induction of Labor Procedures: NST Intrapartum Procedure(s): Spontaneous Vaginal Delivery - Diagnosis Test Laboratory: Temp Pulse Resp BP Pulse Ox 97.6 F 59 L 18 147/106 H 99 08/11/18 08:46 08/11/18 08:46 08/11/18 08:46 08/11/18 08:46 08/11/18 08:46 08/08/18 08/08/18 08/10/18 20:00 20:00 07:17 RBC 4.27 4.03 Hgb 11.3 L 10.7 L Hct 33.4 L 31.7 L Urine Opiates Screen NEGATIVE - Discharge information/Instructions Discharge Activity: Balance Activity w/Rest, Pelvic Rest Discharge Diet: Regular Disposition: HOME, SELF-CARE Follow up with: [facility] in: 1, Weeks
[2018-08-11 15:16] VITALS: BP 143/98
== END 2018-08-11 16:56 | disposition home or self-care (01) | DRG 807 ==
LOC: LR 18:57 → 2S 08-09 12:27
PROVIDERS: ADMIT Obstetrics & Gynecology; ATTEND Obstetrics & Gynecology
PROC: 10E0XZZ Delivery of Products of Conception, External Approach (ICD-10-PCS; principal; 2018-08-09)
DX: O11.4 Pre-existing hypertension with pre-eclampsia, complicating childbirth (principal); Z37.0 Single live birth; O10.02 Pre-existing essential hypertension complicating childbirth; O99.824 Streptococcus B carrier state complicating childbirth; O71.82 Other specified trauma to perineum and vulva; Z3A.36 36 weeks gestation of pregnancy
CPT/HCPCS: 36415; 80053; 80307; 81005; 83615; 84550; 85025; 86592; 86850; 86900; 86901; 88307; J2300; J2550; J2590; J3010; J3490

== ENCOUNTER 2019-06-17 07:38 | Day surgery (SDC) | payer BC ==
[2019-06-16 10:29] LABS: HEMATOCRIT 40.5 % (36.0-47.0); HEMOGLOBIN 13.8 g/dL (12.0-15.5); MEAN CORPUSCULAR HEMOGLOBIN 29.2 pg (27.0-33.4); MEAN CORPUSCULAR HGB CONC 34.1 g/dL (32.0-36.0); MEAN CORPUSCULAR VOLUME 86 fl (80-97); PLATELET COUNT 239 10^3/uL (150-450); RED BLOOD COUNT 4.74 10^6/uL (3.72-5.28); WHITE BLOOD COUNT 7.5 10^3/uL (4.0-10.5)
[2019-06-16 10:36] LABS: APPEARANCE,URINE CLEAR; BILIRUBIN,URINE NEGATIVE (NEGATIVE); COLOR,URINE STRAW; GLUCOSE, URINE NEGATIVE (NEGATIVE); KETONES,URINE NEGATIVE (NEGATIVE); LEUKOCYTE ESTERASE,URINE NEGATIVE (NEGATIVE); NITRITE,URINE NEGATIVE (NEGATIVE); PROTEIN,URINE NEGATIVE (NEGATIVE); URINE SPECIFIC GRAVITY 1.009; UROBILINOGEN,URINE NEGATIVE mg/dL (<2.0)
[~2019-06-17 07:38] MED LIST: LACTATED RINGERS 1000 ML IV PRN; LIDOCAINE 0.5% INJ-PF (5 MG/ML) 50 ML SDV SUBCUT PRN
[2019-06-17] MEDS ORDERED: FENTANYL CITRATE INJ/PF 100 MCG/2 ML AMPUL ONE ×2 (09:11→10:49)
[2019-06-17] MEDS ORDERED: KETOROLAC TROMETHAMINE 60 MG/2 ML SDV ONE (09:11)
[2019-06-17] MEDS ORDERED: MORPHINE SULFATE 10 MG/ML INJ ONE (09:12)
[2019-06-17] MEDS ORDERED: ONDANSETRON HCL INJ/PF 4 MG/2 ML SDV ONE (09:12)
[2019-06-17] MEDS ORDERED: DEXAMETHASONE SOD PHOSPHATE INJ 4 MG/1 ML VIAL ONE (09:12)
[2019-06-17] MEDS ORDERED: MIDAZOLAM 2 MG/2 ML INJ ONE (09:12)
[2019-06-17] MEDS ORDERED: PROPOFOL INJ 200 MG/20 ML VIAL IV ONE (09:12)
[2019-06-17] MEDS ORDERED: SCOPOLAMINE HYDROBROMIDE 1.5 MG PATCH.TD72 ONE (09:36)
[2019-06-17] MEDS ORDERED: MEPERIDINE HCL/PF INJ 25 MG/1 ML DISP.SYRIN IV PRN (09:57)
[2019-06-17] MEDS ORDERED: DIPHENHYDRAMINE HCL 50 MG/ML VIAL IV PRN (09:57)
[2019-06-17] MEDS ORDERED: MORPHINE SULFATE 10 MG/ML INJ IV PRN (09:57)
[2019-06-17] MEDS ORDERED: PROMETHAZINE HCL INJ 25 MG/1 ML VIAL IV PRN ×2 (09:57)
[2019-06-17] MEDS ORDERED: FENTANYL CITRATE INJ/PF 100 MCG/2 ML AMPUL IV PRN ×2 (09:57)
[2019-06-17] MEDS ORDERED: KETOROLAC TROMETHAMINE INJ/PF 30 MG/1 ML SDV IV PRN (10:24)
[2019-06-17] MEDS ORDERED: IBUPROFEN 800 MG TABLET PO PRN (10:24)
[2019-06-17] MEDS ORDERED: OXYCODONE-ACETAMINOPHEN 5-325 MG TABLET PO PRN ×2 (10:24)
[2019-06-17] MEDS ORDERED: RINGERS SOLUTION,LACTATED 1,000 ML IV PRN (10:24)
--- NOTE | 2019-06-17 10:30 | Operative Report ---
Operative Report DATE OF SURGERY: 06/17/19 PREOPERATIVE DIAGNOSIS: Patient desires tubal occlusion POSTOPERATIVE DIAGNOSIS: Same plus dark pigmented lesion in the base of the umbilicus OPERATION: Laparoscopic bilateral tubal cautery and skin biopsy at the base of the umbilicus SURGEON: KARLENE HOWARD ANESTHESIA: GA TISSUE REMOVED OR ALTERED: Fallopian tubes and skin at the base of the umbilicus COMPLICATIONS: None ESTIMATED BLOOD LOSS: 10 cc INTRAOPERATIVE FINDINGS: Normal uterus tubes and ovaries as well as the pigm ented lesion previously described PROCEDURE: Patient was taken the OR and placed in supine position. General anesthesia was induced. She is placed in dorsolithotomy position using Artie stirrups. Her abdomen perineum and vagina were prepared and draped in a sterile fashion. She had previously voided and did not need catheterization. A sponge stick was placed in the vagina for manipulation of the uterus. An incision was made at the umbilicus and the natural umbilical defect was identified and dilated using a Radha clamp. While making the umbilical incision a dark pigmented lesion was seen at the base. The blunt port was inserted through the umbilicus and laparoscopy confirmed appropriate placement. The abdomen was insufflated with CO2 gas. The uterus was elevated in the abdomen and each tube was identified and followed out to its fimbriated end. Each tube was then cauterized with the bipolar cautery starting at the mid isthmic portion moving back toward the uterine cornu with 5 successive bites. Photos were taken at the end of the case. Next the gas was allowed to escape from the abdomen and the port and scope were removed at the same time. A general surgeon was asked to inspect the umbilical lesion and he recommended a small skin biopsy be taken. This was done and passed off the field for specimen. The fascia at the umbilicus was closed with a 2-0 Vicryl stitch and skin closed with a 4-0 undyed Vicryl stitch. The sponge stick was removed from the vagina. Patient was brought out of anesthesia and taken recovery room stable condition.
--- NOTE | 2019-06-17 10:33 | Discharge Summary ---
Discharge Summary (SDC) - Discharge Final Diagnosis: Encounter for tubal ligation Date of Surgery: 06/17/19 Discharge Date: 06/17/19 Condition: Good Prescriptions: Oxycodone HCl/Acetaminophen [Percocet 5-325 mg Tablet] 1 tab PO Q4HP PRN #30 tablet PRN Reason: Referrals: GILBERT ACUNA NP [Primary Care Provider] - Discharge Diet: Regular Discharge Activity: Slowly Increase Activity Report the Following to Your Physician Immediately: Shortness of Breath, Fever over 101 Degrees
[2019-06-17] MEDS ORDERED: ACETAMINOPHEN 1,000 MG/100 ML RTUPB IV ONE ×2 (10:37→11:30)
[2019-06-17] MEDS: FENTANYL CITRATE INJ/PF 100 MCG/2 ML AMPUL IV PRN ×2 (10:50→10:55)
[2019-06-17] MEDS ORDERED: ONDANSETRON 4 MG TAB.RAPDIS ONE (13:07)
[2019-06-17] MEDS ORDERED: SUCCINYLCHOLINE CHLORIDE INJ 200 MG/10 ML VIAL ONE (13:11)
[2019-06-17 14:36] VITALS: BP 133/70
== END 2019-06-17 13:15 | disposition home or self-care (01) ==
LOC: OROUT 07:38 → EEVIPCON 07:38 → OROUT 13:15
PROVIDERS: ATTEND Obstetrics & Gynecology
DX: Z30.2 Encounter for sterilization (principal); D23.5 Other benign neoplasm of skin of trunk; I10 Essential (primary) hypertension
CPT/HCPCS: 36415; 85027; 81005; 81025; 88305 ×2; 00851; 58670; 11106; J2250; J1100; J1885; S0119; J3010; J2270; J0330; J2405; J2704; J0131; 851